=== PATIENT | female | born 1960 | race African-American/Black ===

== ENCOUNTER → 2020-03-05 | Outpatient (CLI) | payer OTHER | LOC: RAD 10:33 | DX: M25.562 Pain in left knee (principal); W19.XXXS Unspecified fall, sequela ==

== ENCOUNTER → 2020-04-30 | Outpatient (CLI) | payer OTHER | LOC: SJCVCIMAG 11:07 | PROVIDERS: ATTEND Internal Medicine | DX: I65.23 Occlusion and stenosis of bilateral carotid arteries (principal); R00.0 Tachycardia, unspecified; Z79.899 Other long term (current) drug therapy; Z88.0 Allergy status to penicillin; Z88.6 Allergy status to analgesic agent ==